=== PATIENT | female | born 1960 | race Caucasian/White ===

== ENCOUNTER → 2018-01-01 10:51 | Outpatient (CLI) | payer OTHER, SELFPAY | PROVIDERS: Visit Provider Internal Medicine Hematology & Oncology | DX: C21.0 Malignant neoplasm of anus, unspecified (principal) | CPT/HCPCS: 99211; G0463 ==

== ENCOUNTER → 2018-02-04 13:17 | Outpatient (CLI) | payer OTHER, SELFPAY ==
--- NOTE | 2018-02-04 15:43 | NURSING ---
Michaela Alanis from [employer] talked with patient about the care of her arm and when to call or come to ER. Right arm red around the midline and tender to touch, white crystal fluid cleaned x2 from around the dressing dressing had been reinforced by [facility] nurse. Patient stated she felt the dressing loosen up and leaking yestarday, pt stated at that time it felt less tight and felt better. Swelling noted under the arm, redness marked, warm to touch, midline dc'd via protocol and sterile technique myself pressure dressing applied by myself no drainage noted. midline was placed by [facility] on the thursday the of this month.
== END ==
PROVIDERS: Visit Provider Internal Medicine Hematology & Oncology
DX: C21.0 Malignant neoplasm of anus, unspecified (principal)